=== PATIENT | female | born 1955 | race Caucasian/White ===

== ENCOUNTER 2018-09-24 12:48 | Day surgery (SDC) | payer BC ==
[2018-09-22 17:36] VITALS: BMI 37.8
[~2018-09-24 12:48] MED LIST: LACTATED RINGERS 1,000 ML IV SCH
[2018-09-24 13:35] VITALS: TEMP 96.9
[2018-09-24] MEDS ORDERED: LIDOCAINE 1% 20 ML VIAL (10MG/ML) FOR IV START INTRADERMA ONE (13:47)
[2018-09-24] MEDS ORDERED: LIDOCAINE 1% INJ 10MG/ML (20 ML MDV) ONE (14:42)
[2018-09-24] MEDS ORDERED: PROPOFOL 10 MG/ML 20 ML VIAL IV ONE (14:42)
--- NOTE | 2018-09-24 15:12 | P.PCN ---
Date of Procedure: 09/24/18 Procedure(s) Performed: Procedure: Colonoscopy and polypectomy. Preoperative diagnosis: Positive cologuard test. Postoperative diagnosis: 1. Diverticulosis with no evidence of acute diverticulitis or strictures. 2. Small rectal polyp snared but no large polyps or cancer. Preparation: HalfLytely prep. Sedation: Was provided by anesthesia. Brief clinical history: The patient is a 63-year-old female who is scheduled for this evaluation because of finding of positive cologuard test. There is no family history of colon cancer and the patient has no abdominal complaints, bleeding or anemia. This would be her first colonoscopy. Procedure: With the patient on her left lateral decubitus position and after informed consent and adequate sedation, the perianal area was inspected and it did not show any fissures or fistulas. He were no masses felt on digital rectal examination. The Olympus CFH 190L video colonoscope was then inserted in the rectum in the usual fashion and advanced to the cecum. There were multiple diverticular orifices seen scattered along the length of the bowel, both on the left and right side, with no evidence of acute diverticulitis or strictures. There was a small polyp in the rectum close to the rectosigmoid junction that was snared and retrieved by suction, but there were no large polyps or cancer. I retroflexed the endoscope in the rectum before the endoscope was withdrawn. The patient tolerated the procedure well. Plan: The patient was reassured. In the absence of upper GI complaints or anemia, I did not recommend upper GI workup at this time and this can be left as a contingency. Based on the pathology results, consideration would be given for repeat her colonoscopy in 5 years. She will follow-up with you as planned.
[2018-09-24 15:38] VITALS: BP 142/74; PULSE 52; RESP 16
== END 2018-09-24 15:55 | disposition home or self-care (01) ==
LOC: ORWHC2ENDO 12:48
DX: K62.1 Rectal polyp (principal); K57.90 Diverticulosis of intestine, part unspecified, without perforation or abscess without bleeding; I10 Essential (primary) hypertension; E78.5 Hyperlipidemia, unspecified; M19.90 Unspecified osteoarthritis, unspecified site; Z88.0 Allergy status to penicillin; Z85.3 Personal history of malignant neoplasm of breast; Z79.82 Long term (current) use of aspirin; Z79.899 Other long term (current) drug therapy
CPT/HCPCS: 88305; 45385; J2001; J2704

== ENCOUNTER → 2023-03-13 | Outpatient (CLI) | payer MEDICARE ==
--- NOTE | 2023-03-13 17:25 | US ---
EXAMINATION TYPE: US extremity nonvasc complete LT, carpal tunnel DATE OF EXAM: 03/13/2023 COMPARISON: NONE CLINICAL INDICATION: Female, 67 years old with history of G56.02 CARPAL TUNNEL; tingling. TECHNIQUE: Multiple sonographic images along the volar aspect of the wrist for assessment of the med belén nerve. FINDINGS: The patient had previous surgery on the left and has chronic lymphedema. This causes some degradation of soft tissue quality for detailed assessment. Median nerve caliber at the level of the distal fore arm is 11 sq mm. At the level of the wrist, there is slight thickening of 13 sq mm. While the normal fascicular architecture is maintained, the nerve appears fixed in place upon pinch Flex maneuvers. IMPRESSION: Very slight thickening of the median nerve at the level of the wrist at 13 sq mm. The median nerve al so appears fixed upon pinch flex maneuvers. Findings may be seen in the setting of carpal tunnel synd elaine.
== END | disposition home or self-care (01) ==
LOC: RADUSWWP 09:30
PROVIDERS: ATTEND Orthopaedic Surgery
DX: G56.02 Carpal tunnel syndrome, left upper limb (principal)